=== PATIENT | male | born 1940 | race Caucasian/White ===

== ENCOUNTER 2017-08-18 18:56 | Emergency (ER) | payer MEDICARE | END 2017-08-18 19:56 | disposition left against medical advice (07) | LOC: ERS 18:56 | DX: Z53.21 Procedure and treatment not carried out due to patient leaving prior to being seen by health care provider (principal) ==

== ENCOUNTER 2017-08-19 08:42 | Emergency (ER) | payer MEDICARE ==
[2017-08-19 09:54] LABS: #Basophils 0.1 thou/uL (0.0-0.2); #Eosinphils 0.2 thou/uL (0.0-0.7); #Lymphocytes 1.8 thou/uL (1.20-3.40); #Monocytes 0.7 thou/uL (0.11-0.59); #Neutrophils 4.2 thou/uL (1.40-6.50); %Basophils 1.2 % (0.0-1.0); %Eosinophils 2.4 % (0.0-10.0); %Lymphocytes 26.2 % (21.0-51.0); %Monocytes 9.7 % (0.0-10.0); %Neutrophils 60.5 % (42.0-75.0); Hemoglobin 16.2 g/dL (14.0-18.0); Mean Corpuscular HGB CONC 33.5 g/dL (32.0-36.0); Mean Corpuscular Hemoglobin 32.1 pg (27.0-31.0); Mean Corpuscular Volume 95.7 fl (80.0-94.0); Mean Platelet Volume 6.6 fL (7.4-10.4); Platelet Count 240 thou/uL (130-400); RBC Distribution Width 12.3 % (11.5-14.5); Red Blood Cell (RBC) Count 5.04 mill/uL (4.70-6.10)
[2017-08-19 10:16] LABS: ALT (SGPT) 17 U/L (8-55); AST (SGOT) 15 U/L (5-34); Albumin 4.4 g/dL (3.4-4.8); Alkaline Phosphatase 91 U/L (40-150); Anion Gap 9 mmol/L (10-20); BUN (Urea Nitrogen) 16 mg/dL (8.4-25.7); Bilirubin, Total 0.7 mg/dL (0.2-1.2); CK (CPK) 139 U/L (30-200); Calc. Creatinine Clearance 0 mL/min (70-130); Carbon Dioxide 30 mmol/L (23-31); Chloride 103 mmol/L (98-107); Estimated GFR-MDRD 74; Globulin 2.9 g/dL (2.4-3.5); Glucose 107 mg/dL (83-110); Lipase 39 U/L (8-78); Potassium 5.1 mmol/L (3.5-5.1); Protein, Total 7.3 g/dL (5.8-8.1); Sodium 137 mmol/L (136-145)
[2017-08-19 10:18] LABS: CKMB 4.2 ng/mL (0-6.6); Troponin I Less than 0.010 ng/mL (< 0.028)
--- NOTE | 2017-08-19 11:34 | CT ---
CT THORAX WITH IV CONTRAST: Date: 08/19/17 HISTORY: Left-sided chest pain which started Monday after falling at a banquet. COMPARISON: None available. FINDINGS: There are no findings to suggest an aortic injury. The thoracic aorta is normal in caliber without ev idence of an aortic dissection. Minimal vascular calcifications are seen at the aortic arch. Mediastinal structures have a normal CT appearance. There is no pneumothorax or pleural effusion present. There is an approximately 5.0 mm noncalcified p ulmonary nodule in the right middle lobe. There is also a tiny, less than 4.0 mm, pulmonary nodule in the region of the lingula. There is minimal biapical pleural and parenchymal scarring with trace pleural thickening at the poste rior left lung base. There is no evidence of lymphadenopathy. There is a minimally displaced fracture involving the anterolateral left fifth rib. No obvious additi onal rib fracture is seen. Degenerative changes are noted in the spine. An 11.0 mm fluid density lesion is seen in the anterior aspect lateral segment left hepatic lobe sugg esting a small cyst. There is a subcentimeter, too small to characterize, hypodense lesion in the inferior pole of the lef t kidney. Remainder of the upper abdomen has a normal CT appearance. IMPRESSION: 1. Minimally displaced left anterolateral left rib fracture. No additional rib fracture is appreciat ed. There is no pneumothorax or pleural effusion identified. 2. Subcentimeter pulmonary nodules in the right middle lobe and lingula, which are too small to dale acterize. 3. Left hepatic lobe cyst. 4. Too small to characterize hypodense lesion left kidney statistically likely representing a cyst. POS: FILOMENA
[2017-08-19] MEDS ORDERED: ISOVUE-370 76%-LOCM 1 ML ONE (16:45)
--- NOTE | 2017-09-02 17:22 | EKG ---
Test Reason : Blood Pressure : / mmHG Vent. Rate : 089 BPM Atrial Rate : 258 BPM P-R Int : 000 ms QRS Dur : 094 ms QT Int : 368 ms P-R-T Axes : 000 -38 010 degrees QTc Int : 447 ms Atrial Flutter with varible capture Left axis deviation Incomplete right bundle branch block Inferior infarct , age undetermined Anteroseptal infarct , age undetermined Abnormal ECG Confirmed by LILLIAM PEMBERTON D.O. ([id number]), brands editor NAZARIO GARCÍA ([id number]) on 09/02/2017 5:21:48 PM Referred By: Confirmed By:LILLIAM PEMBERTON D.O.
== END 2017-08-19 11:56 | disposition home or self-care (01) ==
LOC: ERS 08:42
DX: S22.32XA Fracture of one rib, left side, initial encounter for closed fracture (principal); I48.91 Unspecified atrial fibrillation; Z79.899 Other long term (current) drug therapy; W01.198A Fall on same level from slipping, tripping and stumbling with subsequent striking against other object, initial encounter
CPT/HCPCS: 36415; 71260; 80053; 82550; 82553; 83690; 83880; 84484; 85025; 93005; 94799

== ENCOUNTER 2017-10-31 15:01 | Emergency (ER) | payer MEDICARE ==
[2017-10-31 15:21] LABS: #Basophils 0.1 thou/uL (0.0-0.2); #Monocytes 0.6 thou/uL (0.11-0.59); #Neutrophils 5.4 thou/uL (1.40-6.50); %Basophils 1.1 % (0.0-1.0); %Eosinophils 0.6 % (0.0-10.0); %Lymphocytes 24.4 % (21.0-51.0); %Monocytes 7.8 % (0.0-10.0); %Neutrophils 66.2 % (42.0-75.0); Hemoglobin 16.3 g/dL (14.0-18.0); Mean Corpuscular HGB CONC 34.8 g/dL (32.0-36.0); Mean Corpuscular Hemoglobin 32.6 pg (27.0-31.0); Mean Corpuscular Volume 93.7 fl (80.0-94.0); Mean Platelet Volume 6.8 fL (7.4-10.4); Platelet Count 222 thou/uL (130-400); RBC Distribution Width 12.3 % (11.5-14.5); Red Blood Cell (RBC) Count 4.98 mill/uL (4.70-6.10); White Blood Cell (WBC) Count 8.2 thou/uL (4.8-10.8)
[2017-10-31] MEDS ORDERED: Diltiazem HCl 125 MG, Admixture Fee 1 EACH in Sodium Chloride 0.9% 100 ML IVPB SCH (15:30)
[2017-10-31 15:42] LABS: ALT (SGPT) 20 U/L (8-55); AST (SGOT) 27 U/L (5-34); Albumin 4.6 g/dL (3.4-4.8); Alkaline Phosphatase 103 U/L (40-150); Anion Gap 15 mmol/L (10-20); BUN (Urea Nitrogen) 18 mg/dL (8.4-25.7); Bilirubin, Total 0.8 mg/dL (0.2-1.2); CK (CPK) 362 U/L (30-200); Calc. Creatinine Clearance 0 mL/min (70-130); Calcium 9.7 mg/dL (7.8-10.44); Carbon Dioxide 19 mmol/L (23-31); Chloride 108 mmol/L (98-107); Estimated GFR-MDRD 84; Globulin 2.9 g/dL (2.4-3.5); Glucose 94 mg/dL (83-110); Potassium 4.7 mmol/L (3.5-5.1); Protein, Total 7.5 g/dL (5.8-8.1); Sodium 137 mmol/L (136-145)
[2017-10-31 15:46] LABS: Troponin I Less than 0.010 ng/mL (< 0.028)
--- NOTE | 2017-10-31 16:12 | RAD ---
CHEST 1 VIEW: HISTORY: A 76-year-old male with a history of heart racing, tachycardia. COMPARISON: 08/19/17. FINDINGS: Heart size is within normal limits. Monitor leads overlie the chest. No confluent pneumonia, overt edema, or pleural effusion. IMPRESSION: No acute intrathoracic disease. POS: C
== END 2017-10-31 18:31 | disposition home or self-care (01) ==
LOC: ERS 15:01
DX: I48.91 Unspecified atrial fibrillation (principal); Z79.899 Other long term (current) drug therapy
CPT/HCPCS: 71045; 80053; 82550; 82553; 84484; 85025; 93005; 96365; 96366; J7050

== ENCOUNTER 2018-12-18 11:08 | Outpatient (CLI) | payer MEDICARE ==
--- NOTE | 2018-12-18 11:26 | RAD ---
XR Chest Pa Lat STANDARD History: Mild dyspnea on exertion Comparison: Chest radiograph 2018 Findings: Mild scarring lung apices. No focal airspace consolidation, pneumothorax, or effusion. Card iac silhouette and mediastinal contours are similar. Impression: No acute intrathoracic abnormality.
== END 2018-12-18 11:09 | disposition home or self-care (01) ==
LOC: BICRAD 11:08
PROVIDERS: ATTEND Internal Medicine
DX: R06.00 Dyspnea, unspecified (principal)
CPT/HCPCS: 71046

== ENCOUNTER 2018-12-26 14:48 | Outpatient (CLI) | payer MEDICARE | END 2018-12-26 14:49 | disposition home or self-care (01) | LOC: CP 14:48 | PROVIDERS: ATTEND Internal Medicine | DX: R06.09 Other forms of dyspnea (principal); I48.91 Unspecified atrial fibrillation | CPT/HCPCS: 94060; 94727; 94729 ==

== ENCOUNTER 2020-02-27 05:58 | Observation (INO) | payer MEDICARE, OTHER ==
[2020-02-25 11:26] VITALS: BMI 21.7
[2020-02-27] MEDS ORDERED: Levofloxacin 500 mg/D5W 100 ml Premix Bag ONE (06:21)
[2020-02-27] MEDS ORDERED: Fentanyl 100 MCG/2 ML VIAL ONE (06:46)
[2020-02-27] MEDS ORDERED: Bisacodyl 10 MG SUPP PR PRN (07:47)
[2020-02-27] MEDS ORDERED: Zolpidem Tartrate 5 MG TAB PO PRN (07:47)
[2020-02-27] MEDS ORDERED: Hyoscyamine Sulfate SL 0.125 mg Tablet SL PRN (07:47)
[2020-02-27] MEDS ORDERED: Ondansetron PF 4 MG/2 ML Vial IVP PRN (07:47)
[2020-02-27] MEDS ORDERED: hydrALAZINE 20 MG/ML VIAL SLOW IVP PRN (07:47)
[2020-02-27] MEDS ORDERED: Acetaminophen 500 MG TAB PO PRN (07:47)
[2020-02-27] MEDS ORDERED: Morphine 2 MG/ML VIAL SLOW IVP PRN (07:47)
[2020-02-27] MEDS ORDERED: Phenazopyridine HCl 97.5 MG TABLET PO PRN (07:47)
[2020-02-27] MEDS ORDERED: diphenhydrAMINE 25 MG CAP PO PRN (07:47)
[2020-02-27] MEDS ORDERED: Oxybutynin 5 MG TAB PO PRN (07:47)
[2020-02-27] MEDS ORDERED: traMADol HCl 50 MG TAB PO PRN (07:49)
[2020-02-27] MEDS ORDERED: B & O ONE (08:40)
[2020-02-27] MEDS ORDERED: METOPROLOL SUCCINATE 50 MG PO SCH (09:00)
[2020-02-27] MEDS: Docusate 100 MG CAP PO SCH ×2 (09:00→22:00)
[2020-02-27] MEDS ORDERED: PROPOFOL 200 MG/20 ML VIAL ONE (10:03)
[2020-02-27] MEDS ORDERED: Lidocaine 1% PF 5 ML VIAL ONE (10:03)
[2020-02-27] MEDS ORDERED: Ondansetron PF 4 MG/2 ML Vial ONE (10:03)
--- NOTE | 2020-02-27 10:51 | OP ---
DATE OF PROCEDURE: 02/27/2020 SERVICE: Urology. PREOPERATIVE DIAGNOSIS: Benign prostatic hypertrophy with urinary obstruction. POSTOPERATIVE DIAGNOSIS: Benign prostatic hypertrophy with urinary obstruction. PROCEDURES PERFORMED: 1. Transurethral vaporization of the prostate. 2. Cystoscopy. 3. Bladder biopsy. INDICATIONS FOR PROCEDURE: Mr. Munoz is a 79-year-old white male with BPH and urinary obstruction. He underwent evaluation for UroLift, but had significant intravesical extension of the anterior prostate. I was concerned about potentially injuring the bladder during the UroLift. Therefore, I recommended a transurethral vaporization of prostate instead. Risks and benefits of surgery were discussed and he agreed to proceed forward. DESCRIPTION OF PROCEDURE: After identification of armband and verification of consent, the patient was brought back to the operating room where he underwent general anesthesia with an LMA. He was then placed in a dorsal lithotomy position and prepped and draped in the usual sterile fashion. After appropriate time-out, a lubricated 26-Ugandan resectoscope sheath with visual obturator was brought into the urethra. Full cystoscopy was performed, which demonstrated multiple bladder diverticula with multiple areas of erythematous patches, which looked unusual and suspicious. I felt these were most likely inflammatory, but given that the patient has not had an indwelling catheter, I was somewhat concerned about the appearance of these. I elected to perform a biopsy of the posterior bladder wall lesion. The visual obturator was switched out for cold cup biopsy forceps through the resectoscope sheath. Two cold cup biopsies were taken from a posterior lesion, which was the largest. This was sent off for routine pathologic evaluation. The plasma vaporization button was then brought in, and using a coag current, the biopsy site was cauterized until it was completely hemostatic. Once it was dried, attention was then turned towards the prostate. Vaporization was started at the bladder neck and carried out to the verumontanum circumferentially with vaporization of all intervening tissue. Relaxing incisions were made at 5 and 7 o'clock on the bladder neck, which resulted in a very wide open bladder neck with vaporization of the intervening tissue. Upon completion, the prostate was wide open with complete vaporization of the majority of the prostate. We did not reach the capsule, although I feel that I relatively close to it. After meticulous hemostasis, both ureters were checked and found to be in orthotopic location. The biopsy site was also noted to be dry. There were no chips for removal. The resectoscope was then withdrawn, and a 22-Ugandan 3-way Franklin catheter was placed with ease into the patient's bladder. 30 mL of sterile water placed into the balloon and CBI initiated. A B and O suppository was placed in the patient's rectum. He was then taken out of positioning, had a StatLock affixed to his leg. He was then awakened, taken to PACU for recovery in stable condition. COMPLICATIONS: None. ESTIMATED BLOOD LOSS: Minimal. RETAINED TUBES AND DRAINS: A 22-Ugandan 3-way Franklin catheter on CBI. SPECIMENS: Bladder biopsy x2. DISPOSITION: The patient will be kept in the hospital overnight for monitoring. We will plan discharge after a void trial tomorrow. Job ID: [id number]
[2020-02-28] MEDS: Docusate 100 MG CAP PO SCH (08:03)
--- NOTE | 2020-02-28 09:22 | PRG ---
DATE OF SERVICE: 02/28/2020 SUBJECTIVE: The patient states he is feeling great. He has mild bladder urgency, but no spasms or pain. CBI has been stopped this morning. His urine has remained clear. He is feeling good otherwise. Denies any chest pain or shortness of breath. OBJECTIVE: VITAL SIGNS: Temperature 98.7, pulse 74, respirations 16, blood pressure 105/65, and saturation 96% on room air. GENERAL: No apparent distress. Communicative and alert. CARDIOVASCULAR: Regular rate and rhythm. ABDOMEN: Soft, nontender, and nondistended. Positive bowel sounds. : Franklin catheter in place with nearly completely clear urine off CBI. EXTREMITIES: No edema. LABORATORY EVALUATION: There are no labs to review. ASSESSMENT AND PLAN: A 79-year-old white male with benign prostatic hypertrophy status post transurethral vaporization of prostate, postoperative day 1. I have removed his catheter while in the room. I told him we will perform serial urine collection. So long as he is able to void and his urine is not exceedingly bloody, he can be discharged home. I have gone over his discharge instructions and will plan to see him back in approximately 1 to 2 weeks for a postoperative check. Job ID: [id number]
[2020-02-28 12:00] VITALS: BP 106/69; TEMP 98.1
== END 2020-02-28 13:10 | disposition home or self-care (01) ==
LOC: SDC 05:58 → SJJU 10:04
PROVIDERS: ADMIT Urology; ATTEND Urology
PROC: 0V507ZZ Destruction of Prostate, Via Natural or Artificial Opening (ICD-10-PCS; principal; 2020-02-27)
DX: N40.1 Benign prostatic hyperplasia with lower urinary tract symptoms (principal); N13.8 Other obstructive and reflux uropathy; N30.00 Acute cystitis without hematuria; N30.20 Other chronic cystitis without hematuria; Z79.01 Long term (current) use of anticoagulants; Z79.899 Other long term (current) drug therapy; Z88.2 Allergy status to sulfonamides
CPT/HCPCS: 88305; 96374; G0378; J1956; J2405; J2704; J3010

== ENCOUNTER 2023-02-13 08:29 | Outpatient (CLI) | payer MEDICARE, OTHER ==
[2023-02-13] MEDS ORDERED: Iopamidol-370 76% 500 ML MDV (1 ML CHARGE) ONE (08:37)
== END 2023-02-13 08:30 | disposition home or self-care (01) ==
LOC: BICCT 08:29
PROVIDERS: ATTEND Urology
DX: R31.9 Hematuria, unspecified (principal); N20.1 Calculus of ureter; N28.89 Other specified disorders of kidney and ureter
CPT/HCPCS: 74178; 82565; Q9967

== ENCOUNTER 2023-02-15 11:43 | Outpatient (CLI) | payer MEDICARE, OTHER | END 2023-02-15 11:44 | disposition home or self-care (01) | LOC: RAD 11:43 | PROVIDERS: ATTEND Urology | DX: N20.0 Calculus of kidney (principal); N28.89 Other specified disorders of kidney and ureter | CPT/HCPCS: 74018 ==

== ENCOUNTER 2023-03-02 14:20 | Outpatient (CLI) | payer MEDICARE, OTHER ==
[2023-03-02 15:28] LABS: Bilirubin Neg (Negative); Blood, Urine 50 (Negative); Clarity Clear (Clear); Glucose, Urine (Dipstick) Normal (Negative); Ketone, Urine Negative (Negative); Leukocyte 500 (Negative); Nitrite Negative (Negative); Protein, Urine (Dipstick) 30 mg/dl (Neg-Trace); Specific Gravity, Urine 1.015 (1.005-1.030)
[2023-03-02 15:42] LABS: Hematocrit 41.4 % (38.8-50.0); Hemoglobin 14.3 g/dL (13.5-17.5); Mean Corpuscular HGB CONC 34.5 g/dL (32.0-36.0); Mean Corpuscular Hemoglobin 31.8 pg (27.0-33.0); Mean Corpuscular Volume 92.2 fl (81.2-95.1); Mean Platelet Volume 9.8 fl (7.4-10.4); Platelet Count 210 10x3/uL (150-450); RBC Distribution Width 12.5 % (11.5-14.5); Red Blood Cell (RBC) Count 4.49 10x6/uL (4.32-5.72); White Blood Cell (WBC) Count 9.8 10x3/uL (3.5-10.5)
[2023-03-02 15:54] LABS: INR-International Normal Ratio 1.1; PTT 31.3 sec (22.0-33.0); Prothrombin Time 11.5 sec (9.5-12.1)
[2023-03-02 16:04] LABS: Anion Gap 16 mmol/L (10-20); BUN (Urea Nitrogen) 26 mg/dL (8.4-25.7); Calc. Creatinine Clearance 0 mL/min (70-130); Calcium 8.9 mg/dL (7.8-10.44); Carbon Dioxide 24 mmol/L (23-31); Chloride 103 mmol/L (98-107); Estimated GFR 79; Glucose 99 mg/dL (83-110); Sodium 139 mmol/L (136-145)
[2023-03-02 16:49] LABS: Bacteria/HPF 2+ HPF (None Seen); Mucous/LPF Rare LPF (<2+); Squamous Epithelial 0-3 HPF (0-3); WBC/HPF 21-50 HPF (0-3)
== END 2023-03-02 14:21 | disposition home or self-care (01) ==
LOC: LABBT 14:20
PROVIDERS: ATTEND Urology
DX: Z01.818 Encounter for other preprocedural examination (principal); N20.2 Calculus of kidney with calculus of ureter
CPT/HCPCS: 80048; 81001; 85027; 85610; 85730; 87077; 87086; 87186; 93005; 93010

== ENCOUNTER 2023-03-17 08:29 | Emergency (ER) | payer MEDICARE, OTHER ==
[2023-03-17 10:47] LABS: #Basophils 0.1 thou/uL (0.0-0.2); #Eosinphils 0.1 thou/uL (0.0-0.7); #Monocytes 0.6 thou/uL (0.11-0.59); #Neutrophils 3.2 thou/uL (1.40-6.50); %Basophils 1.9 % (0.0-1.0); %Eosinophils 1.9 % (0.0-10.0); %Lymphocytes 29.3 % (21.0-51.0); %Monocytes 10.5 % (0.0-10.0); %Neutrophils 56.1 % (42.0-75.0); Hematocrit 40.7 % (42.0-52.0); Hemoglobin 13.6 g/dL (14.0-18.0); Mean Corpuscular HGB CONC 33.4 g/dL (32.0-36.0); Mean Corpuscular Hemoglobin 31.3 pg (27.0-31.0); Mean Corpuscular Volume 93.6 fl (78.0-98.0); Mean Platelet Volume 8.9 fL (7.4-10.4); Platelet Count 337 10x3/uL (130-400); Red Blood Cell (RBC) Count 4.35 mill/uL (4.70-6.10); White Blood Cell (WBC) Count 5.7 10x3/uL (4.8-10.8)
[2023-03-17 10:59] LABS: INR-International Normal Ratio 1.1; Prothrombin Time 14.3 sec (12.0-14.7)
[2023-03-17 11:00] LABS: PTT 32.4 sec (22.9-36.1)
[2023-03-17 12:41] LABS: ALT (SGPT) 17 U/L (8-55); AST (SGOT) 18 U/L (5-34); Albumin 3.8 g/dL (3.4-4.8); Alkaline Phosphatase 92 U/L (40-110); Anion Gap 11 mmol/L (10-20); BUN (Urea Nitrogen) 16 mg/dL (8.4-25.7); Bilirubin, Total 0.4 mg/dL (0.2-1.2); Calc. Creatinine Clearance 0 mL/min (70-130); Calcium 9.5 mg/dL (7.8-10.44); Carbon Dioxide 25 mmol/L (23-31); Chloride 102 mmol/L (98-107); Estimated GFR 89; Globulin 3.3 g/dL (2.4-3.5); Glucose 88 mg/dL (83-110); Potassium 4.6 mmol/L (3.5-5.1); Protein, Total 7.1 g/dL (5.8-8.1); Sodium 133 mmol/L (136-145)
== END 2023-03-17 15:02 | disposition home or self-care (01) ==
LOC: ERS 08:29
DX: S06.5X0A Traumatic subdural hemorrhage without loss of consciousness, initial encounter (principal); W18.30XA Fall on same level, unspecified, initial encounter
CPT/HCPCS: 36415; 70450; 80053; 85025; 85610; 85730

== ENCOUNTER 2023-03-20 11:00 | Inpatient (IN) | payer MEDICARE, OTHER ==
[2023-03-21] MEDS ORDERED: Ondansetron PF 4 MG/2 ML Vial IVP PRN (09:53)
[2023-03-21] MEDS ORDERED: HYDROcodone/Acetaminophen 7.5/325 mg Tablet PO PRN (09:53)
[2023-03-21] MEDS ORDERED: diphenhydrAMINE 50 MG/ML VIAL IVP PRN (09:53)
[2023-03-21] MEDS ORDERED: Promethazine HCl 25 MG/ML VIAL IM PRN ×2 (09:53→12:09)
[2023-03-21] MEDS ORDERED: Acetaminophen 325 MG TAB PO PRN (09:53)
[2023-03-21] MEDS ORDERED: Mag-Al 1200 mg/1200 mg/30 ML UDCUP PO PRN (09:53)
[2023-03-21] MEDS ORDERED: Docusate 100 MG CAP PO PRN (09:53)
[2023-03-21] MEDS ORDERED: hydrALAZINE 20 MG/ML VIAL SLOW IVP PRN (09:56)
[2023-03-21] MEDS ORDERED: Bacitracin Zinc Ointment 30 gm TUBE ONE (10:02)
[2023-03-21] MEDS ORDERED: Thrombin 5000 UNITS/5 ML VIAL ONE (10:02)
[2023-03-21] MEDS ORDERED: EPINEPHrine 1 MG/ML AMP ONE (10:02)
[2023-03-21] MEDS ORDERED: Vancomycin 1 GM VIAL ONE (10:02)
[2023-03-21] MEDS ORDERED: Lidocaine 1% (PF) 30 ML VIAL ONE (10:02)
[2023-03-21] MEDS ORDERED: fentaNYL PF 100 MCG/2 ML SYRINGE ONE (10:07)
[2023-03-21] MEDS ORDERED: Sodium Chloride 0.9% 100 ML ONE (10:28)
[2023-03-21] MEDS ORDERED: CEFAZOLIN 2 GM VIAL ONE (10:28)
[2023-03-21] MEDS ORDERED: Ondansetron PF 4 MG/2 ML Vial ONE (10:38)
[2023-03-21] MEDS ORDERED: Esmolol 100 MG/10 ML VIAL ONE (10:38)
[2023-03-21] MEDS ORDERED: Lidocaine 1% PF 5 ML VIAL ONE (10:38)
[2023-03-21] MEDS ORDERED: Dexamethasone 20 MG/5 ML VIAL ONE (10:38)
[2023-03-21] MEDS ORDERED: PROPOFOL 200 MG/20 ML VIAL ONE (10:38)
[2023-03-21] MEDS ORDERED: Rocuronium Bromide 10 MG/ML (10ML VIAL) ONE (10:38)
[2023-03-21] MEDS ORDERED: Glycopyrrolate 0.2 MG/ML 5 ML SYRINGE ONE (10:38)
[2023-03-21] MEDS ORDERED: NEOSTIGMINE 3 MG/3 ML SYR 3 MG/3 ML SYRINGE ONE (10:38)
[2023-03-21] MEDS ORDERED: PHENYLEPHRINE-NS 100 MCG/ML 10 ML SYRINGE ONE (10:38)
[2023-03-21] MEDS ORDERED: Ondansetron HCl/PF 4 MG/2 ML Vial IVP PRN (12:09)
[2023-03-21] MEDS: Sodium Chloride 0.9% 1,000 ML IV SCH (13:49)
[2023-03-21] MEDS: CEFAZOLIN 2 GM in Sodium Chloride 0.9% 100 ML IVPB SCH (17:58)
[2023-03-21] MEDS: levETIRAcetam 500 MG TAB PO SCH (20:18)
[2023-03-22] MEDS: CEFAZOLIN 2 GM in Sodium Chloride 0.9% 100 ML IVPB SCH ×2 (01:45→09:19)
[2023-03-22] MEDS: Sodium Chloride 0.9% 1,000 ML IV SCH (01:45)
[2023-03-22 06:13] VITALS: TEMP 97.6
[2023-03-22 07:57] LABS: #Monocytes 0.8 thou/uL (0.11-0.59); #Neutrophils 7.7 thou/uL (1.40-6.50); %Basophils 0.2 % (0.0-1.0); %Eosinophils 0.2 % (0.0-10.0); %Lymphocytes 15.2 % (21.0-51.0); %Monocytes 8.2 % (0.0-10.0); %Neutrophils 75.7 % (42.0-75.0); Hematocrit 37.5 % (42.0-52.0); Hemoglobin 12.4 g/dL (14.0-18.0); Mean Corpuscular HGB CONC 33.1 g/dL (32.0-36.0); Mean Corpuscular Hemoglobin 30.7 pg (27.0-31.0); Mean Corpuscular Volume 92.8 fl (78.0-98.0); Platelet Count 253 10x3/uL (130-400); RBC Distribution Width 11.9 % (11.5-14.5); Red Blood Cell (RBC) Count 4.04 mill/uL (4.70-6.10); White Blood Cell (WBC) Count 10.2 10x3/uL (4.8-10.8)
[2023-03-22 08:21] LABS: Anion Gap 11 mmol/L (10-20); BUN (Urea Nitrogen) 10 mg/dL (8.4-25.7); Calc. Creatinine Clearance 77 mL/min (70-130); Calcium 8.8 mg/dL (7.8-10.44); Carbon Dioxide 23 mmol/L (23-31); Chloride 107 mmol/L (98-107); Estimated GFR 90; Glucose 105 mg/dL (83-110); Magnesium 1.9 mg/dL (1.6-2.6); Potassium 4.1 mmol/L (3.5-5.1); Sodium 137 mmol/L (136-145)
[2023-03-22] MEDS: levETIRAcetam 500 MG TAB PO SCH (08:41)
[2023-03-22] MEDS ORDERED: Cholecalciferol 1,000 UNITS (25 MCG) TAB PO SCH (09:00)
== END 2023-03-22 15:11 | disposition home or self-care (01) | DRG 27 ==
LOC: SURG A 03-21 05:36 → CCU 03-21 13:30
PROVIDERS: ADMIT Neurological Surgery; ATTEND Neurological Surgery
PROC: 009400Z Drainage of Intracranial Subdural Space with Drainage Device, Open Approach (ICD-10-PCS; principal; 2023-03-21)
PROC: 3E033XZ Introduction of Vasopressor into Peripheral Vein, Percutaneous Approach (ICD-10-PCS; 2023-03-21)
DX: I62.03 Nontraumatic chronic subdural hemorrhage (principal); I48.91 Unspecified atrial fibrillation; G40.909 Epilepsy, unspecified, not intractable, without status epilepticus; I12.9 Hypertensive chronic kidney disease with stage 1 through stage 4 chronic kidney disease, or unspecified chronic kidney disease; N18.2 Chronic kidney disease, stage 2 (mild); D63.1 Anemia in chronic kidney disease; F10.90 Alcohol use, unspecified, uncomplicated; Z88.2 Allergy status to sulfonamides; Z79.899 Other long term (current) drug therapy; Z98.890 Other specified postprocedural states
CPT/HCPCS: 36415; 36416; 70450; 80048; 83735; 85025; 85027; 85610; 85730; C1713; J0171; J1100; J2001; J2405; J2704; J3370; J3490; J7050

== ENCOUNTER 2023-03-20 11:03 | Outpatient (CLI) | payer MEDICARE, OTHER ==
[2023-03-20 13:00] LABS: Hematocrit 42.6 % (38.8-50.0); Hemoglobin 13.9 g/dL (13.5-17.5); Mean Corpuscular HGB CONC 32.6 g/dL (32.0-36.0); Mean Corpuscular Hemoglobin 30.6 pg (27.0-33.0); Mean Corpuscular Volume 93.8 fl (81.2-95.1); Mean Platelet Volume 9.2 fl (7.4-10.4); Platelet Count 329 10x3/uL (150-450); RBC Distribution Width 11.8 % (11.5-14.5); Red Blood Cell (RBC) Count 4.54 10x6/uL (4.32-5.72); White Blood Cell (WBC) Count 6.1 10x3/uL (3.5-10.5)
[2023-03-20 13:10] LABS: INR-International Normal Ratio 1.1; PTT 29.1 sec (22.0-33.0); Prothrombin Time 11.4 sec (9.5-12.1)
== END 2023-03-20 11:04 | disposition home or self-care (01) ==
LOC: LABBT 11:03
PROVIDERS: ATTEND Neurological Surgery
DX: Z01.812 Encounter for preprocedural laboratory examination (principal); I62.03 Nontraumatic chronic subdural hemorrhage
CPT/HCPCS: 85027; 85610; 85730

== ENCOUNTER 2023-04-11 12:42 | Outpatient (CLI) | payer MEDICARE, OTHER | END 2023-04-11 12:43 | disposition home or self-care (01) | LOC: CT 12:42 | PROVIDERS: ATTEND Neurological Surgery | DX: I62.03 Nontraumatic chronic subdural hemorrhage (principal); R90.89 Other abnormal findings on diagnostic imaging of central nervous system; I65.29 Occlusion and stenosis of unspecified carotid artery; I67.2 Cerebral atherosclerosis; J34.89 Other specified disorders of nose and nasal sinuses; S02.40CA Maxillary fracture, right side, initial encounter for closed fracture | CPT/HCPCS: 70450 ==

== ENCOUNTER 2023-07-25 10:00 | Inpatient (IN) | payer MEDICARE, OTHER ==
[2023-07-27 13:49] VITALS: BMI 20.9
[2023-07-27 15:04] LABS: Hematocrit 46.3 % (38.8-50.0); Hemoglobin 15.7 g/dL (13.5-17.5); Mean Corpuscular HGB CONC 33.9 g/dL (32.0-36.0); Mean Corpuscular Hemoglobin 30.8 pg (27.0-33.0); Mean Platelet Volume 9.5 fl (7.4-10.4); Platelet Count 233 10x3/uL (150-450); RBC Distribution Width 13.2 % (11.5-14.5); Red Blood Cell (RBC) Count 5.09 10x6/uL (4.32-5.72); White Blood Cell (WBC) Count 5.5 10x3/uL (3.5-10.5)
[2023-07-27 15:21] LABS: INR-International Normal Ratio 1.1; Prothrombin Time 11.7 sec (9.5-12.1)
[2023-07-27 15:33] LABS: ALT (SGPT) 26 U/L (8-55); AST (SGOT) 24 U/L (5-34); Albumin 4.2 g/dL (3.4-4.8); Alkaline Phosphatase 113 U/L (40-110); Anion Gap 16 mmol/L (10-20); BUN (Urea Nitrogen) 17 mg/dL (8.4-25.7); Bilirubin, Total 0.6 mg/dL (0.2-1.2); Calc. Creatinine Clearance 63 mL/min (70-130); Calcium 9.2 mg/dL (7.8-10.44); Carbon Dioxide 26 mmol/L (23-31); Chloride 104 mmol/L (98-107); Estimated GFR 85; Globulin 2.5 g/dL (2.4-3.5); Glucose 128 mg/dL (83-110); Potassium 4.6 mmol/L (3.5-5.1); Protein, Total 6.7 g/dL (5.8-8.1); Sodium 141 mmol/L (136-145)
[2023-08-01] MEDS ORDERED: Heparin 10,000 UNITS/ 10 ML VIAL ONE (06:51)
[2023-08-01] MEDS ORDERED: CEFAZOLIN 2 GM VIAL ONE (06:51)
[2023-08-01] MEDS ORDERED: fentaNYL 50 mcg/mL 1 mL Vial ONE (07:17)
[2023-08-01] MEDS ORDERED: Phenylephrine 10 MG/ML VIAL ONE (07:17)
[2023-08-01] MEDS ORDERED: Lidocaine 2% PF 100 mg/5 ml Syringe ONE (07:17)
[2023-08-01] MEDS ORDERED: PROPOFOL 20 ML ONE (07:17)
[2023-08-01] MEDS ORDERED: Lidocaine 1% PF 5 ML VIAL ONE (07:32)
[2023-08-01] MEDS ORDERED: Rocuronium Bromide 10 MG/ML (10ML VIAL) ONE (07:32)
[2023-08-01] MEDS ORDERED: Protamine Sulfate 50 MG/5 ML VIAL ONE (08:19)
[2023-08-01] MEDS ORDERED: SUGAMMADEX SODIUM 200 MG/2 ML VIAL ONE (08:41)
[2023-08-01] MEDS ORDERED: Iopamidol 370 76% 100 ML VIAL ONE (09:12)
== END 2023-08-01 14:20 | disposition home or self-care (01) | DRG 274 ==
LOC: SURG A 08-01 06:10
PROVIDERS: ADMIT Internal Medicine Cardiovascular Disease; ATTEND Internal Medicine Cardiovascular Disease
PROC: 02L73DK Occlusion of Left Atrial Appendage with Intraluminal Device, Percutaneous Approach (ICD-10-PCS; principal; 2023-08-01)
DX: I48.21 Permanent atrial fibrillation (principal); Z86.79 Personal history of other diseases of the circulatory system; Z88.2 Allergy status to sulfonamides; Z79.899 Other long term (current) drug therapy; Z79.01 Long term (current) use of anticoagulants
CPT/HCPCS: 33340; 80053; 85027; 85347; 85610; 86850; 86900; 86901; 93306; 93312; C1759; C1760; C1769; C1894; J1644; J2001; J2370; J2704; J2720; J3010

== ENCOUNTER 2024-03-27 14:21 | Outpatient (CLI) | payer MEDICARE, OTHER ==
[2024-03-27 16:36] LABS: #Basophils 0.05 10x3/uL (0.0-0.2); %Basophils 0.7 % (0.0-1.0); %Eosinophils 1.2 % (0.0-10.0); %Lymphocytes 25.2 % (21.0-51.0); %Monocytes 9.1 % (0.0-10.0); %Neutrophils 63.5 % (42.0-75.0); Hematocrit 42.7 % (42.0-52.0); Hemoglobin 14.2 g/dL (14.0-18.0); Mean Corpuscular HGB CONC 33.3 g/dL (32.0-36.0); Mean Corpuscular Hemoglobin 30.1 pg (27.0-31.0); Mean Corpuscular Volume 90.5 fL (78.0-98.0); Mean Platelet Volume 9.8 fL (7.4-10.4); Platelet Count 225 10x3/uL (130-400); RBC Distribution Width 13.1 % (11.5-14.5); Red Blood Cell (RBC) Count 4.72 mill/uL (4.70-6.10)
[2024-03-27 16:48] LABS: Anion Gap 11 mmol/L (10-20); BUN (Urea Nitrogen) 22 mg/dL (8.4-25.7); Calc. Creatinine Clearance 0 mL/min (70-130); Calcium 9.4 mg/dL (7.8-10.44); Carbon Dioxide 25 mmol/L (23-31); Chloride 109 mmol/L (98-107); Estimated GFR 69; Glucose 144 mg/dL (83-110); Potassium 4.2 mmol/L (3.5-5.1); Sodium 141 mmol/L (136-145)
== END 2024-03-27 14:22 | disposition home or self-care (01) ==
LOC: LABBT 14:21
PROVIDERS: ATTEND Specialist
DX: Z01.812 Encounter for preprocedural laboratory examination (principal); J34.2 Deviated nasal septum; J34.3 Hypertrophy of nasal turbinates
CPT/HCPCS: 80048; 85025

== ENCOUNTER 2024-03-28 07:33 | Day surgery (SDC) | payer MEDICARE, OTHER ==
[2024-03-27 13:27] VITALS: BMI 20.9
[~2024-03-28 07:33] MED LIST: Dexamethasone 4 mg/ml Vial ONE; Lidocaine 1% PF 5 ML VIAL ONE; Ondansetron PF 4 MG/2 ML Vial ONE; fentaNYL PF 100 MCG/2 ML SYRINGE ONE
[2024-03-28] MEDS ORDERED: Rocuronium Bromide 10 MG/ML (10ML VIAL) ONE (07:34)
[2024-03-28] MEDS ORDERED: PROPOFOL 20 ML ONE ×2 (07:34→10:28)
[2024-03-28] MEDS ORDERED: EPINEPHrine 1 MG/ML VIAL ONE (08:29)
[2024-03-28] MEDS ORDERED: Lidocaine 1% (PF) 30 ML VIAL ONE (08:30)
[2024-03-28] MEDS ORDERED: Bacitracin Zinc Ointment 30 gm TUBE ONE (08:30)
[2024-03-28] MEDS ORDERED: Oxymetazoline HCl 0.05% (30 ML BOT) ONE ×2 (08:30→09:45)
[2024-03-28] MEDS ORDERED: SUGAMMADEX SODIUM 200 MG/2 ML VIAL ONE (10:15)
[2024-03-28] MEDS ORDERED: PHENYLEPHRINE-NS 100 MCG/ML 10 ML SYRINGE ONE (10:15)
== END 2024-03-28 13:05 | disposition home or self-care (01) ==
LOC: SDC 07:33
PROVIDERS: ATTEND Specialist
PROC: 09BM4ZZ Excision of Nasal Septum, Percutaneous Endoscopic Approach (ICD-10-PCS; principal; 2024-03-28)
PROC: 09TL4ZZ Resection of Nasal Turbinate, Percutaneous Endoscopic Approach (ICD-10-PCS; 2024-03-28)
DX: J34.2 Deviated nasal septum (principal); J34.3 Hypertrophy of nasal turbinates; J32.9 Chronic sinusitis, unspecified; I48.91 Unspecified atrial fibrillation; H91.90 Unspecified hearing loss, unspecified ear; Z88.2 Allergy status to sulfonamides; Z79.899 Other long term (current) drug therapy; Z79.01 Long term (current) use of anticoagulants; Z98.890 Other specified postprocedural states
CPT/HCPCS: 30140; 30520; J0171; J1100; J2001; J2405; J2704